=== PATIENT | female | born 1945 | race Caucasian/White ===

== ENCOUNTER → 2024-03-27 06:17 | Day surgery (SDC) | payer MEDICARE, OTHER, SELFPAY | LOC: GI 06:17 | PROVIDERS: ATTENDING PHYSICIAN Internal Medicine; FAMILY PHYSICIAN Family Medicine | DX: D50.9 Iron deficiency anemia, unspecified (principal); K63.5 Polyp of colon; Q43.8 Other specified congenital malformations of intestine; K31.7 Polyp of stomach and duodenum; K44.9 Diaphragmatic hernia without obstruction or gangrene; K29.50 Unspecified chronic gastritis without bleeding | CPT/HCPCS: 45385; 43239; 88305; 88342 ==

== ENCOUNTER → 2024-08-15 08:47 | Outpatient (REF) | payer MEDICARE, OTHER, SELFPAY | LOC: RCS 08:47 | PROVIDERS: ATTENDING PHYSICIAN Internal Medicine Cardiovascular Disease; FAMILY PHYSICIAN Physician Assistant | DX: I36.1 Nonrheumatic tricuspid (valve) insufficiency (principal) | CPT/HCPCS: 93306 ==